=== PATIENT | female | born 1945 | race Caucasian/White ===

== ENCOUNTER 2018-12-06 09:22 | Emergency (ER) | payer MEDICARE, OTHER ==
[2018-12-06] MEDS: IBUPROFEN 600 MG TAB PO (10:11)
== END 2018-12-06 13:05 | disposition home or self-care (01) ==
LOC: FTE 09:22
DX: S82.51XA Displaced fracture of medial malleolus of right tibia, initial encounter for closed fracture (principal); I10 Essential (primary) hypertension; V49.40XA Driver injured in collision with unspecified motor vehicles in traffic accident, initial encounter
CPT/HCPCS: 29515; 73590; 73610-RT; 93971; 99284-25